=== PATIENT | male | born 1940 | race Caucasian/White ===

== ENCOUNTER 2019-12-16 16:41 | Emergency (ER) | payer OTHER, SELFPAY ==
--- NOTE | ~2019-12-16 | XR_ITS ---
EXAMINATION: XR chest 1V portable EXAM DATE: 12/16/2019 17:26 INDICATION: Weakness, high blood pressure. No urine output. History of asthma. TECHNIQUE: Portable AP frontal chest x-ray was obtained. There is no prior study for comparison. FINDINGS: The lungs are clear. There are no pleural effusions. The cardiomediastinal silhouette is within normal limits. There is no pneumothorax suspected. There is coronary artery stent. There are mild bony degenerative changes. Old left rib fracture. IMPRESSION: No acute cardiopulmonary findings. Reviewed, dictated and finalized at location A.
[2019-12-16 16:53] VITALS: BP 222/94; PULSE 70; RESP 12; TEMP 36.6; O2SAT 99
[2019-12-16 17:50] LABS: Basophils Percent Auto 0.4 % (0.2-1.2); Eosinophils Absolute Auto 0.2 K/mm3 (0-0.3); Eosinophils Percent Auto 2.9 % (0-4.4); Hematocrit 32.5 % (42.0-52.0); Hemoglobin 10.7 g/dL (14.0-18.0); Immature Granulocyte Absolute 0.02 K/mm3 (0.00-0.031); Immature Granulocyte Percent A 0.3 % (0-0.5); Lymphocytes Absolute Auto 2.37 K/mm3 (0.9-3.2); Lymphocytes Percent Auto 32.7 % (18.3-44.2); Mean Corpuscular HGB Conc 32.9 g/dl (32-36); Mean Corpuscular Hemoglobin 29.9 pg (26-34); Mean Corpuscular Volume 90.8 fl (80-100); Mean Platelet Volume 11.3 fl (7.4-10.4); Monocytes Absolute Auto 0.7 K/mm3 (0.1-0.6); Monocytes Percent Auto 9.1 % (2.6-8.5); Neutrophils Percent Auto 54.6 % (45.5-73.1); Platelet Count Result 263 k/mm3 (150-375); Red Blood Count 3.58 M/mm3 (4.6-6.20); Red Cell Distribution Width 14.9 % (11.5-14.5); White Blood Count 7.3 K/mm3 (4.5-10.0)
[2019-12-16 17:59] LABS: INR 1.1; Prothrombin Time 13.6 Seconds (11.1-14.7)
[2019-12-16 18:01] LABS: Lactic Acid Reflex 2.1 mmol/L (0.7-2.1)
[2019-12-16 18:04] LABS: Alanine Aminotransferase 31 U/L (4-50); Albumin Level 3.5 g/dL (3.5-5.1); Alkaline Phosphatase 76 U/L (38-126); Anion Gap 7 mmol/L (8-16); Aspartate Amino Transferase 36 U/L (17-59); Bilirubin,Total 0.5 mg/dL (0.2-1.3); Blood Urea Nitrogen 20 mg/dL (9-20); CRP 0.7 mg/dL (<1.0); Calcium 9.1 mg/dL (8.4-10.2); Carbon Dioxide 29 mmol/L (22-30); Chloride 103 mmol/L (98-107); Estimated Glomerular Filt Rate > 60; Glucose 102 mg/dL (75-110); Potassium 3.5 mmol/L (3.4-5.0); Sodium 139 mmol/L (137-145)
[2019-12-16] MEDS: LIDOCAINE HCL 2% GEL UROJET 10 ML PKG (18:33)
[2019-12-16 18:34] VITALS: BP 220/94; PULSE 74; RESP 11; TEMP 36.6; O2SAT 96
[2019-12-16 18:52] LABS: Add Urine Microscopic? YES; Amorphous Sediment Urine Few; Appearance Urine Clear (Clear); Bilirubin Urine Negative (Negative); Blood Urine Negative (Negative); Color Urine Yellow (Yellow); Glucose Urine UA Negative (Negative); Ketones Urine Negative (Negative); Leukocyte Esterase Ur Negative LEU/UL (Negative); Mucus Urine Rare /lpf; Nitrate Urine Negative (Negative); Protein Urine Negative (Negative); Specific Grav Ur 1.021 (1.001-1.035); WBC Urine 0-3 /hpf
--- NOTE | 2019-12-16 19:12 | ED.ABDPAIN ---
HPI - Abdominal Pain General Chief Complaint: Urogenital-Male <PONCHO Bender Last Filed: 12/16/19 20:18> Stated Complaint: no urinary output <PONCHO Bender Last Filed: 12/16/19 20:18> Time Seen by Provider: 12/16/19 16:53 <PONCHO Bender Last Filed: 12/16/19 20:18> Source: patient <PONCHO Bender Last Filed: 12/16/19 20:18> Mode of arrival: EMS <PONCHO Bender Last Filed: 12/16/19 20:18> Limitations: no limitations and dementia <PONCHO Bender Last Filed: 12/16/19 20:18> History of Present Illness HPI narrative: Patient is a 79-year-old male who presents to emergency department for evaluation of weakness and complaints of inability to urinate patient has history of dementia and is unreliable patient's is present and is unable to offer much as to his acute condition as she has not seen him since the COVID pandemic began. Patient on arrival is an unreliable historian in the bed in no distress <PONCHO Bender Last Filed: 12/16/19 20:18> Related Data Home Medications: Home Medications Medication Instructions Recorded Confirmed brimonidine 0.2 % eye drops 1 drop EACH EYE Q8H 02/04/19 dorzolamide 2 % eye drops 1 drop EACH EYE TID 02/04/19 latanoprost 0.005 % eye drops 1 drop EACH EYE DAILY 02/04/19 memantine ER 28 mg-donepezil 10 mg 1 cap PO QPM 02/04/19 capsule sprinkle,ext.release 24 hr quetiapine 150 mg tablet,extended PO 02/04/19 release 24 hr sertraline 50 mg tablet 50 mg PO DAILY 02/04/19 <PONCHO Bender Last Filed: 12/16/19 20:18> Allergies/Adverse Reactions: Allergies Allergy/AdvReac Type Severity Reaction Status Date / Time codeine Allergy Unknown Verified 03/05/15 14:02 erythromycin base Allergy Unknown Verified 03/05/15 14:02 hydrocodone Allergy Unknown Diarrhea Verified 04/15/17 11:29 spironolactone Allergy Unknown Verified 03/02/13 15:01 <Ghulam Chapman PA-C - Last Filed: 12/16/19 20:18> Review of Systems Review of Systems: ROS unobtainable: Yes unobtainable due to medical condition <Ghulam Chapman PA-C - Last Filed: 12/16/19 20:18> PMFSH Past Medical History Medical History: Medical History Atherosclerotic heart disease of [place] coronary artery without angina pectoris Chronic low back pain Coronary artery graft present Dysphagia, unspecified Hyperlipidemia, unspecified Hypertensive heart disease without heart failure Primary open-angle glaucoma, bilateral, severe stage Type 2 diabetes mellitus with diabetic neuropathy, unspecified Unspecified sequelae of cerebral infarction Unspecified urinary incontinence Vascular dementia with behavioral disturbance <Ghulam Cahpman PA-C - Last Filed: 12/16/19 20:18> Family History Family History: Family History (Updated 04/17/17 @ 14:22 by DOCTOR UNKNOWN) Mother Family history of osteoarthritis Cerebrovascular accident Family history of heart disease in male family member before age 55 Patient's mother is Hypertension Family history of Alzheimer's disease Father Carcinoma of colon Patient's father is Family history of malignant neoplasm Sibling Patient's brother is in good health Other Diabetes mellitus Family history of allergic disorder Family history of cardiovascular disease <Ghulam Chapman PA-C - Last Filed: 12/16/19 20:18> Social History Social History: Social History Smoking status: Never smoker Alcohol intake: never <Ghulam Chapman PA-C - Last Filed: 12/16/19 20:18> Exam Narrative: Exam Narrative: GENERAL: Well-appearing, well-nourished, and in no acute distress. HEAD: Normocephalic, atraumatic. EYES: PERRLA and EOMI. ENT: Nares clear, no rhinorrhea or epistaxis. Mucous membranes moist. Oropharynx witho
[2019-12-16 20:02] VITALS: BP 135/102; PULSE 78; RESP 18; TEMP 36.6; O2SAT 97
[2019-12-16 20:46] VITALS: BP 179/72; PULSE 70; RESP 18; TEMP 36.6; O2SAT 99
[2019-12-16 20:48] LABS: Reflex Lactic Acid Yes or No Add Lactic
--- NOTE | 2019-12-16 21:22 | PC.NURSE ---
called [facility] to transport patient. ETA [phone]
[2019-12-16 21:30] VITALS: BP 181/75; PULSE 76; RESP 17; TEMP 36.7; O2SAT 98
== END 2019-12-16 22:00 ==
PROVIDERS: Emergency Medicine Emergency Medical Services; Emergency Provider Emergency Medicine; PCP Family Medicine
DX: R30.0 Dysuria (principal); I25.10 Atherosclerotic heart disease of native coronary artery without angina pectoris; E78.5 Hyperlipidemia, unspecified; E11.42 Type 2 diabetes mellitus with diabetic polyneuropathy; H40.1133 Primary open-angle glaucoma, bilateral, severe stage; I11.9 Hypertensive heart disease without heart failure; F01.51 Vascular dementia, unspecified severity, with behavioral disturbance
CPT/HCPCS: 36415; 51702; 71045; 80053; 81001; 83605; 85025; 85610; 85730; 86140; 87040; 99283

== ENCOUNTER 2020-03-16 21:31 | Observation (INO) | payer OTHER, SELFPAY ==
[2020-03-16] VITALS (12 sets, daily range): BP systolic 135–174; BP diastolic 67–74; PULSE 71–78; RESP 13–20; TEMP 36.7; O2SAT 98–100
--- NOTE | ~2020-03-16 | XR_ITS ---
EXAMINATION: XR chest 1V portable INDICATION: Transient alteration of awareness TECHNIQUE: Portable AP chest at 2312 hours COMPARISON: 12/16/2019 FINDINGS: The lungs are free of acute opacities. The heart size is normal. Coronary artery stents are noted. There is no pleural effusion or pneumothorax. There is mild osteoarthritis of the shoulders. IMPRESSION: 1. No acute cardiopulmonary abnormality. Reviewed, dictated and finalized at location A. GER PIPELINE
--- NOTE | ~2020-03-16 | CT_ITS ---
EXAMINATION: CT brain wo con INDICATION: Transient alteration of awareness COMPARISON: MRI, 04/24/2016 TECHNIQUE: Standard unenhanced head CT. The dose-length product (DLP) was 605.33 mGy-cm. The mA was a djusted according to patient size. Iterative reconstruction technique was employed. FINDINGS: There is no acute intraparenchymal hemorrhage. No evidence of mass lesion. No evidence of a cute infarction. There is an old lacunar infarct of the left basal ganglia. There is moderate periven tricular and subcortical hypodensity probably related to small vessel ischemic disease. There is mode rate prominence of the sulci and ventricles related to cerebral atrophy. Intracranial calcified cereb ral atherosclerosis is noted. There are no extra-axial collections. There is no mass effect or midlin e shift. Changes in the left globe are likely from ocular lens surgery. There is mild mucosal thicke melodie of the paranasal sinuses. IMPRESSION: 1. No acute intracranial abnormality. 2. Age related findings. Reviewed, dictated and finalized at location A. GN DIRECTOR
--- NOTE | 2020-03-16 21:32 | ECG_ITS ---
Measurements Intervals [place] Rate: 73 P: 8 SC: 167 QRS: 34 QRSD: 103 T: 41 QT: 393 QTc: 434 Interpretive Statements SINUS RHYTHM ANTEROSEPTAL INFARCT, AGE INDETERMINATE BASELINE ARTIFACT- III ABNORMAL ECG Electronically Signed On 03-17-2020 7:15:44 SENIOR SOFTWARE DEVELOPMENT MANAGER by Paco Loera D.O.
[2020-03-16 21:45] LABS: Basophils Absolute Auto 0.1 K/mm3 (0.0-0.1); Basophils Percent Auto 0.8 % (0.2-1.2); Eosinophils Absolute Auto 0.3 K/mm3 (0-0.3); Eosinophils Percent Auto 4.2 % (0-4.4); Hematocrit 32.8 % (42.0-52.0); Hemoglobin 10.8 g/dL (14.0-18.0); Immature Granulocyte Absolute 0.01 K/mm3 (0.00-0.031); Immature Granulocyte Percent A 0.2 % (0-0.5); Lymphocytes Absolute Auto 1.75 K/mm3 (0.9-3.2); Lymphocytes Percent Auto 29.5 % (18.3-44.2); Mean Corpuscular HGB Conc 32.9 g/dl (32-36); Mean Corpuscular Hemoglobin 31.6 pg (26-34); Mean Corpuscular Volume 95.9 fl (80-100); Mean Platelet Volume 11.3 fl (7.4-10.4); Monocytes Absolute Auto 0.4 K/mm3 (0.1-0.6); Monocytes Percent Auto 7.4 % (2.6-8.5); Neutrophils Absolute Auto 3.4 K/mm3 (1.3-6.7); Neutrophils Percent Auto 57.9 % (45.5-73.1); Platelet Count Result 208 k/mm3 (150-375); Red Blood Count 3.42 M/mm3 (4.6-6.20); Red Cell Distribution Width 13.7 % (11.5-14.5); White Blood Count 5.9 K/mm3 (4.5-10.0)
[2020-03-16 21:57] LABS: Anion Gap 3 mmol/L (8-16); Blood Urea Nitrogen 15 mg/dL (9-20); Calcium 8.2 mg/dL (8.4-10.2); Carbon Dioxide 31 mmol/L (22-30); Chloride 103 mmol/L (98-107); Estimated CRCL calculation 64 ml/min; Estimated Glomerular Filt Rate > 60; Glucose 182 mg/dL (75-110); Potassium 3.5 mmol/L (3.4-5.0); Sodium 137 mmol/L (137-145)
--- NOTE | 2020-03-16 22:02 | ED.SYNCOPE ---
HPI - Syncope General Chief Complaint: Syncope Stated Complaint: syncope Time Seen by Provider: 03/16/20 21:40 Source: EMS Mode of arrival: EMS Limitations: dementia History of Present Illness HPI narrative: 79 years old white male, [facility] brought to the emergency room by ambulance because of unresponsiveness lasted for about 10 minutes. Patient had vomited once today for unknown reason, later was sitting on the dinner table and became unresponsive. The nurse tried to stimulate him without any response. Patient become responsive when the ambulance arrived to the [facility]. Currently patient is awake, oriented to his name only, denying any symptoms, looks comfortable. The [facility] denied that the patient have any fever, chills, coughing, shortness of breath, chest pain, exposure to anybody known having COVID-19. Related Data Home Medications Medication Instructions Recorded Confirmed brimonidine 0.2 % eye drops 1 drop EACH EYE Q8H 02/04/19 dorzolamide 2 % eye drops 1 drop EACH EYE TID 02/04/19 latanoprost 0.005 % eye drops 1 drop EACH EYE DAILY 02/04/19 memantine ER 28 mg-donepezil 10 mg 1 cap PO QPM 02/04/19 capsule sprinkle,ext.release 24 hr quetiapine 150 mg tablet,extended PO 02/04/19 release 24 hr sertraline 50 mg tablet 50 mg PO DAILY 02/04/19 Allergies Allergy/AdvReac Type Severity Reaction Status Date / Time codeine Allergy Unknown Unknown Verified 03/16/20 21:33 erythromycin base Allergy Unknown Unknown Verified 03/16/20 21:33 hydrocodone Allergy Unknown Diarrhea Verified 03/16/20 21:33 spironolactone Allergy Unknown Unknown Verified 03/16/20 21:33 Review of Systems Review of Systems: ROS unobtainable: Yes unobtainable due to mental status PMFSH Past Medical History Medical History (Updated 03/16/20 @ 23:10 by Jennifer Hutton MD) Atherosclerotic heart disease of [place] coronary artery without angina pectoris Chronic low back pain Coronary artery graft present Dysphagia, unspecified Hyperlipidemia, unspecified Hypertensive heart disease without heart failure Primary open-angle glaucoma, bilateral, severe stage Type 2 diabetes mellitus with diabetic neuropathy, unspecified Unspecified sequelae of cerebral infarction Unspecified urinary incontinence Vascular dementia with behavioral disturbance Family History Family History Mother Family history of osteoarthritis Cerebrovascular accident Family history of heart disease in male family member before age 55 Patient's mother is Hypertension Family history of Alzheimer's disease Father Carcinoma of colon Patient's father is Family history of malignant neoplasm Sibling Patient's brother is in good health Other Diabetes mellitus Family history of allergic disorder Family history of cardiovascular disease Social History Social History Smoking status: Never smoker Alcohol intake: never Exam Narrative: Exam Narrative: General appearance: Well-developed, well-nourished, laying down in bed, not in any pain or distress Skin: Pale Head: Normocephalic, nontraumatic Eyes: Clear conjunctiva ENT: Oropharynx normal, ears normal, nose normal Neck: Supple, nontender Chest and respiratory: Airway patent, no respiratory distress, no accessory muscle use Heart: Regular rate/rhythm Abdomen: Soft, nontender, no organomegaly, quiet bowel sounds Musculoskeletal: Normal range of motion, nontender back Neurologic: Alert and oriented to his name only Course Vital Signs Vital signs: Vital Signs Temperature 36.7 C 03/16/20 21:24
[2020-03-16 23:47] LABS: Base Excess ABG -1.7 mEq/l (+/-2.0); Device ROOM AIR; Fractional Inspired Oxygen 21 %; HCO3 ABG 22.8 mEq/l (22.0-26.0); Oxygen Content ABG 14.9 %vol (16.0-22.0); Oxygen Saturation ABG 97.4 % (95.0-100.0); Oxyhemoglobin 95.3 % THb (90.0-100.0); PCO2 ABG 37.7 mmHg (35.0-45.0); PO2 ABG 96.6 mmHg (80.0-100.0); Site Drawn RIGHT BRACHIAL
[2020-03-17] VITALS (14 sets, daily range): BP systolic 103–208; BP diastolic 57–92; PULSE 65–75; RESP 12–18; TEMP 36–36.6; O2SAT 92–100
--- NOTE | 2020-03-17 01:00 | ADMGEN ---
This patient, Timothy Noble, was admitted to Medical Room 254-01 on 03/17/2020 @ 0045. Patient/family oriented to hospital policies and general routines including ID bracelet, bed and alarms, visiting hours, pain management, procedures, bathroom and other care routines, personal items, smoking policy, room service/diet, and visiting hours. Information on how to activate the Rapid Response Team has been discussed. Patient/Family are encouraged to report perceived risks to care and to ask questions if they do not understand what they are told or what they should do.
--- NOTE | 2020-03-17 02:20 | PC.NURSE ---
pt poor historian, unable to answer most of my questions. History obtained from records from [facility] and from previous history. Unable to verify pts home medications, there is no nurse available overnight at [facility].
--- NOTE | 2020-03-17 05:50 | PC.NURSE ---
spoke with pt's Maria Elena, she is able to tell me that pt had a stroke 3 years ago. Since then he has gone down hill fairly quickly. She said he has a lot of difficulty with speech and has had multiple falls recently. He currently uses a wheelchair and had been working with therapy to try walking with a walker and gait belt. She also states he had been working with speech therapy. She is unable to tell me if he has any difficulty swallowing, and was unable to tell me about his medications
--- NOTE | 2020-03-17 07:37 | PM.IMHP ---
H&P: HPI History of Present Illness Date/Time: 03/17/20 07:37 Chief complaint: Unresponsiveness Narrative: Timothy Noble is a 79 year old male resident at [facility]. He was at the dinner table when he slumped over and was unresponsive for several minutes, perhaps 10 total. When EMS arrived he was again responding normally for him. His normally oriented to person only. He has advanced dementia with recent poor oral intake and severe behaviors with aggressiveness toward caregivers. Earlier in the day he had an episode of emesis. No unreported any bleeding with the emesis. No recent blood noted in his stool. Since arrival at the hospital he has had no further episodes of unresponsiveness. Since December he has been unable to walk. He is chronically incontinent of bowel and bladder. He has been having trouble feeding himself since December. His speech has become more sparse. He requires assistance with all ADLs and set up for feeding. History was obtained by review of the chart and by phone conversation with his Maria Elena. Review of Systems Review of Systems: Narrative: Patient is cooperative but with poor memory. He denied any current pain or dyspnea. ROS unobtainable: Yes unobtainable due to mental status PMFSH Past Medical History Medical History (Updated 03/17/20 @ 13:35 by Javed Jordan MD) Anemia of chronic disease Atherosclerotic heart disease of [place] coronary artery without angina pectoris Cerebrovascular disease Chronic low back pain Dysphagia, unspecified H/O: stroke Hyperlipidemia, unspecified Hypertensive heart disease without heart failure Primary open-angle glaucoma, bilateral, severe stage Type 2 diabetes mellitus with diabetic neuropathy, unspecified Unspecified sequelae of cerebral infarction Unspecified urinary incontinence Vascular dementia with behavioral disturbance Surgical History Surgical History (Updated 03/17/20 @ 13:29 by Javed Jordan MD) S/P coronary angiogram 2006 with 3 stents Stented coronary artery Family History Family History Mother Family history of osteoarthritis Cerebrovascular accident Family history of heart disease in male family member before age 55 Patient's mother is Hypertension Family history of Alzheimer's disease Father Carcinoma of colon Patient's father is Family history of malignant neoplasm Sibling Patient's brother is in good health Other Diabetes mellitus Family history of allergic disorder Family history of cardiovascular disease Social History Social History (Updated 03/17/20 @ 13:30 by Javed Jordan MD) Smoking status: Never smoker Alcohol intake: unknown Substance use: current Substance use type: sedatives Living arrangements: [facility] Occupation/Education: retired Meds Home Medications and Allergies Home Medications Medication Instructions Recorded Confirmed Type brimonidine 0.2 % eye drops 1 drop EACH EYE TID 02/04/19 03/17/20 History dorzolamide 2 % eye drops 1 drop EACH EYE TID 02/04/19 03/17/20 History latanoprost 0.005 % eye drops 1 drop EACH EYE HS 02/04/19 03/17/20 History quetiapine 150 mg tablet,extended 200 mg PO DAILY 02/04/19 03/17/20 History release 24 hr sertraline 50 mg tablet 50 mg PO DAILY 02/04/19 03/17/20 History aspirin 81 mg tablet,delayed 81 mg PO DAILY #90 tablet 06/22/19 03/17/20 Rx release clopidogrel 75 mg tablet 75 mg PO DAILY #30 tablet 10/12/19 03/17/20 Rx metformin 500 mg tablet 500 mg PO BID #60 tablet 10/12/19 03/17/20 Rx omega-3 acid ethyl esters 1 gram 2 cap PO BID #120 cap 12/14/19 03/17/20 Rx capsule atorvastatin 80 mg PO DAILY 03/17/20 03/17/20 History carvedilol 3.125 mg PO BID 03/17/20 03/17/20 History cyanocobalamin (vitamin B-12) 1,000 mcg PO DAILY 03/17/20 03/17/20 History [Vitamin B-12] divalproex 125 mg PO BID 03/17/20 03/17/20 History donepezil 10
[2020-03-17 08:36] LABS: Hematocrit 29.7 % (42.0-52.0); Hemoglobin 9.8 g/dL (14.0-18.0); Immature Reticulocyte Fraction 10.1 % (3.0-15.9); Mean Corpuscular Hemoglobin 31.5 pg (26-34); Mean Corpuscular Volume 95.5 fl (80-100); Mean Platelet Volume 11.4 fl (7.4-10.4); Platelet Count Result 194 k/mm3 (150-375); Red Blood Count 3.11 M/mm3 (4.6-6.20); Red Cell Distribution Width 13.9 % (11.5-14.5); Reticulocyte Hemoglobin Conten 35.6 pg (28.2-35.7); Reticulocyte Percent 1.48 % (0.7-4.3); Reticulocytes Absolute 0.05 B/L (32.2-175.7); White Blood Count 5.8 K/mm3 (4.5-10.0)
[2020-03-17 08:51] LABS: Alanine Aminotransferase 13 U/L (4-50); Albumin Level 2.9 g/dL (3.5-5.1); Alkaline Phosphatase 69 U/L (38-126); Anion Gap 0 mmol/L (8-16); Aspartate Amino Transferase 19 U/L (17-59); Bilirubin,Total 0.3 mg/dL (0.2-1.3); Blood Urea Nitrogen 17 mg/dL (9-20); CRP < 0.5 mg/dL (<1.0); Carbon Dioxide 36 mmol/L (22-30); Chloride 105 mmol/L (98-107); Estimated CRCL calculation 65 ml/min; Estimated Glomerular Filt Rate > 60; Glucose 104 mg/dL (75-110); Potassium 3.4 mmol/L (3.4-5.0); Sodium 141 mmol/L (137-145)
[2020-03-17 09:43] LABS: Iron 32 ug/dL (49-181)
[2020-03-17 09:53] LABS: Percent Iron Saturation 13 % (20-50)
[2020-03-17 10:15] LABS: Thyroid Stimulating Hormone Reflex 0.588 uIU/mL (0.465-4.68)
[2020-03-17 10:35] LABS: Folic Acid > 20.0 ng/mL (2.76->20)
--- NOTE | 2020-03-17 11:00 | PC.NURSE ---
Dr. Jordan notified that patients home medications have been entered into home med rec to be continued.
[2020-03-17] MEDS: LOSARTAN POTASSIUM 100 MG TABLET PO (14:03)
[2020-03-17 15:46] LABS: IFOB Positive Control Positive; Immunochemical Fecal Occult Bl Negative (N)
[2020-03-17] MEDS: DORZOLAMIDE HCL 2% OPHTH DROPS 1 DROP EACH EYE (17:06)
[2020-03-17] MEDS: ENOXAPARIN 40 MG/0.4 ML SYRINGE SUB-Q (17:06)
[2020-03-17] MEDS: BRIMONIDINE TARTRATE 0.2% OP SOLN 5 ML BTL 1 DROP EACH EYE (17:06)
[2020-03-17] MEDS: DIVALPROEX SODIUM SPRINKLE 125 MG CAP.DR PO (17:06)
[2020-03-17] MEDS: MEMANTINE 10 MG TABLET PO (17:06)
[2020-03-17] MEDS: metFORMIN HCL 500 MG TABLET PO (17:06)
[2020-03-17 18:18] LABS: Glucose Point of Care 95 (65-105)
[2020-03-17] MEDS: carvediloL 3.125 MG TABLET PO (21:11)
[2020-03-17] MEDS: LATANOPROST 0.005% OP SOLN 2.5 ML BTL 1 DROP EACH EYE (21:11)
[2020-03-17] MEDS: DONEPEZIL HCL 10 MG TABLET PO (21:12)
[2020-03-17] MEDS: OMEGA 3 POLYUNSAT FATTY ACIDS 1 GM CAP PO (21:12)
[2020-03-17 22:39] LABS: Glucose Point of Care 101 (65-105)
[2020-03-18] VITALS (12 sets, daily range): BP systolic 123–197; BP diastolic 72–90; PULSE 59–87; RESP 14–18; TEMP 36.2–36.5; O2SAT 97–99
[2020-03-18] MEDS: hydrALAZINE HCL 20 MG/ML VIAL 10 MG IV PUSH (03:10)
[2020-03-18] MEDS: ATORVASTATIN 40 MG TABLET 80 MG PO (08:23)
[2020-03-18] MEDS: SERTRALINE HCL 50 MG TABLET PO (08:23)
[2020-03-18] MEDS: MEMANTINE 10 MG TABLET PO ×2 (08:23→17:15)
[2020-03-18] MEDS: carvediloL 3.125 MG TABLET PO ×2 (08:23→20:40)
[2020-03-18] MEDS: FOLIC ACID 1 MG TABLET PO (08:23)
[2020-03-18] MEDS: OMEGA 3 POLYUNSAT FATTY ACIDS 1 GM CAP PO ×2 (08:23→20:40)
[2020-03-18] MEDS: POTASSIUM CHLORIDE 10 MEQ TABLET.ER PO (08:24)
[2020-03-18] MEDS: BRIMONIDINE TARTRATE 0.2% OP SOLN 5 ML BTL 1 DROP EACH EYE ×3 (08:24→17:14)
[2020-03-18] MEDS: CYANOCOBALAMIN 1,000 MCG TABLET 1000 MCG PO (08:24)
[2020-03-18] MEDS: ASPIRIN 81 MG ENTERIC TABLET PO (08:24)
[2020-03-18] MEDS: DIVALPROEX SODIUM SPRINKLE 125 MG CAP.DR PO ×2 (08:24→17:15)
[2020-03-18] MEDS: QUEtiapine FUMARATE XR 200 MG TAB.ER.24H PO (08:24)
[2020-03-18] MEDS: LOSARTAN POTASSIUM 100 MG TABLET PO (08:24)
--- NOTE | 2020-03-18 08:25 | P.PNIM_ITS ---
Progress Note: A&P Assessment and Plan (1) Syncope: Code(s): R55 - Syncope and collapse Status: Acute Assessment and Plan: * Differential diagnosis includes seizure due to prior stroke, posterior circulation TIA, cardiac dysrhythmia, hypoglycemia, neurocardiogenic * acute coronary syndrome is clinically unlikely in light of EKG * currently seems to be back at baseline * Telemetry unremarkable * Continue cardiac monitoring * D/w spouse and, due to patient's advanced dementia, will not pursue any further evaluation * She will consider hospice care upon his return to the [place] * Await negative SARS-CoV-2 rt-PCR prior to discharge to CT (2) Cerebrovascular disease: Code(s): I67.9 - Cerebrovascular disease, unspecified Status: Acute (3) Vascular dementia with behavioral disturbance: Code(s): F01.51 - Vascular dementia with behavioral disturbance Status: Acute Assessment and Plan: * patient is on quetiapine for behaviors * apparently confusion has been worsening (4) Type 2 diabetes mellitus with diabetic neuropathy, unspecified: Code(s): E11.40 - Type 2 diabetes mellitus with diabetic neuropathy, unspecified Status: Acute Assessment and Plan: * Hold metformin due to adverse effect on appetite and recent poor oral intake * monitor sugars and administer sliding scale insulin as needed * 03/18 FBS only 85 (5) Atherosclerotic heart disease of [place] coronary artery without angina pectoris: Code(s): I25.10 - Atherosclerotic heart disease of [place] coronary artery without angina pectoris Status: Acute Assessment and Plan: * continue beta-alexander and antiplatelet therapy (6) Stented coronary artery: Code(s): Z95.5 - Presence of coronary angioplasty implant and graft Status: Acute Assessment and Plan: * continue anti-platelet therapy (7) Hypertensive heart disease without heart failure: Code(s): I11.9 - Hypertensive heart disease without heart failure Status: Acute Assessment and Plan: * resume home antihypertensive regimen (8) Anemia of chronic disease: Code(s): D63.8 - Anemia in other chronic diseases classified elsewhere Status: Acute Assessment and Plan: * no sign of iron deficiency or B12 deficiency or hemolysis (9) Malnutrition of moderate degree: Code(s): E44.0 - Moderate protein-calorie malnutrition Status: Acute Assessment and Plan: * likely due to the and sing dementia with poor oral intake * Albumin 2.9 Subjective Date/time seen: 03/18/20 08:25 Interval history: Admitted 03/16 PM due to LOC while at dinner table at [place]. 03/18: No recurrence since admission. Tolerating diet. Review of Systems Review of Systems: ROS unobtainable: Yes unobtainable due to mental status Exam Narrative: Exam Narrative: HEENT: EOMI, PERRL, sclerae nonicteric, pharyngeal mucosa pink and intact NECK: No JVD CHEST: Clear to auscultation. Normal effort. HEART: NL S1/S2, regular, no murmur ABDOMEN: BS+, soft, nontender, no mass, no bruits EXTREMITIES: No cyanosis. no ankle edema NEUROLOGIC: CN intact and symmetric to inspection. MUSCULOSKELETAL: Tone and strength symmetric. PSYCH: Alert. Oriented to person only. Objective Data Vital Signs Vital Signs: Vital Signs - 24 hr 03/17/20 10:40 03/17/20 12:00 03/17/20 16:00 Temperature 97.4 F L 97.9 F Pulse Rate 75 68 75 R
--- NOTE | 2020-03-18 08:25 | PM.IMPN ---
Progress Note: A&P Assessment and Plan (1) Syncope: Code(s): R55 - Syncope and collapse Status: Acute Assessment and Plan: Differential diagnosis includes seizure due to prior stroke, posterior circulation TIA, cardiac dysrhythmia, hypoglycemia, neurocardiogenic acute coronary syndrome is clinically unlikely in light of EKG currently seems to be back at baseline Telemetry unremarkable Continue cardiac monitoring D/w spouse and, due to patient's advanced dementia, will not pursue any further evaluation She will consider hospice care upon his return to the [place] Await negative SARS-CoV-2 rt-PCR prior to discharge to [facility] (2) Cerebrovascular disease: Code(s): I67.9 - Cerebrovascular disease, unspecified Status: Acute (3) Vascular dementia with behavioral disturbance: Code(s): F01.51 - Vascular dementia with behavioral disturbance Status: Acute Assessment and Plan: patient is on quetiapine for behaviors apparently confusion has been worsening (4) Type 2 diabetes mellitus with diabetic neuropathy, unspecified: Code(s): E11.40 - Type 2 diabetes mellitus with diabetic neuropathy, unspecified Status: Acute Assessment and Plan: Hold metformin due to adverse effect on appetite and recent poor oral intake monitor sugars and administer sliding scale insulin as needed 03/18 FBS only 85 (5) Atherosclerotic heart disease of [place] coronary artery without angina pectoris: Code(s): I25.10 - Atherosclerotic heart disease of [place] coronary artery without angina pectoris Status: Acute Assessment and Plan: continue beta-alexander and antiplatelet therapy (6) Stented coronary artery: Code(s): Z95.5 - Presence of coronary angioplasty implant and graft Status: Acute Assessment and Plan: continue anti-platelet therapy (7) Hypertensive heart disease without heart failure: Code(s): I11.9 - Hypertensive heart disease without heart failure Status: Acute Assessment and Plan: resume home antihypertensive regimen (8) Anemia of chronic disease: Code(s): D63.8 - Anemia in other chronic diseases classified elsewhere Status: Acute Assessment and Plan: no sign of iron deficiency or B12 deficiency or hemolysis (9) Malnutrition of moderate degree: Code(s): E44.0 - Moderate protein-calorie malnutrition Status: Acute Assessment and Plan: likely due to the and sing dementia with poor oral intake Albumin 2.9 Subjective Date/time seen: 03/18/20 08:25 Interval history: Admitted 03/16 PM due to LOC while at dinner table at [place]. 03/18: No recurrence since admission. Tolerating diet. Review of Systems Review of Systems: ROS unobtainable: Yes unobtainable due to mental status Exam Narrative: Exam Narrative: HEENT: EOMI, PERRL, sclerae nonicteric, pharyngeal mucosa pink and intact NECK: No JVD CHEST: Clear to auscultation. Normal effort. HEART: NL S1/S2, regular, no murmur ABDOMEN: BS+, soft, nontender, no mass, no bruits EXTREMITIES: No cyanosis. no ankle edema NEUROLOGIC: CN intact and symmetric to inspection. MUSCULOSKELETAL: Tone and strength symmetric. PSYCH: Alert. Oriented to person only. Objective Data Vital Signs Vital Signs: Vital Signs - 24 hr 03/17/20 10:40 03/17/20 12:00 03/17/20 16:00 Temperature 97.4 F L 97.9 F Pulse Rate 75 68 75 Respiratory Rate 16 18 Blood Pressure 208/82 H 186/92 H Pulse Oximetry 100 92 03/17/20 20:00 03/17/20 21:11 03/17/20 21:44 Temperature 97.5 F L Pulse Rate 66 68 66 Respiratory Rate 18 Blood Pressure 183/74 H Pulse Oximetry 98 03/18/20 00:00 03/18/20 02:36 03/18/20 02:38 Temperature 97.3 F L Pulse Rate 65 59 L Respiratory Rate 18 Blood Pressure 195/77 H 192/77 H Pulse Oximetry 99 03/18/20 04:00 03/18/20 08:23 Temperature Pulse Rate 64 86 Respiratory Rate Blood P
[2020-03-18] MEDS: DORZOLAMIDE HCL 2% OPHTH DROPS 1 DROP EACH EYE ×3 (08:34→17:14)
[2020-03-18 08:41] LABS: Glucose Point of Care 85 (65-105)
[2020-03-18] MEDS: CLOPIDOGREL BISULFATE 75 MG TABLET PO (09:16)
[2020-03-18 11:52] LABS: Glucose Point of Care 113 (65-105)
[2020-03-18 16:36] LABS: Glucose Point of Care 111 (65-105)
[2020-03-18] MEDS: ENOXAPARIN 40 MG/0.4 ML SYRINGE SUB-Q (17:15)
[2020-03-18] MEDS: DONEPEZIL HCL 10 MG TABLET PO (20:40)
[2020-03-18] MEDS: LATANOPROST 0.005% OP SOLN 2.5 ML BTL 1 DROP EACH EYE (20:41)
[2020-03-18 20:50] LABS: Glucose Point of Care 156 (65-105)
[2020-03-19] VITALS (8 sets, daily range): BP systolic 147–158; BP diastolic 53–68; PULSE 61–72; RESP 16; TEMP 36.1–36.6; O2SAT 98–100; BMI 21.9
[2020-03-19 07:44] LABS: Glucose Point of Care 102 (65-105)
[2020-03-19] MEDS: carvediloL 3.125 MG TABLET PO (09:48)
[2020-03-19] MEDS: ATORVASTATIN 40 MG TABLET 80 MG PO (09:48)
[2020-03-19] MEDS: LOSARTAN POTASSIUM 100 MG TABLET PO (09:49)
[2020-03-19] MEDS: BRIMONIDINE TARTRATE 0.2% OP SOLN 5 ML BTL 1 DROP EACH EYE ×3 (09:49→19:41)
[2020-03-19] MEDS: DIVALPROEX SODIUM SPRINKLE 125 MG CAP.DR PO ×2 (09:49→19:39)
[2020-03-19] MEDS: CYANOCOBALAMIN 1,000 MCG TABLET 1000 MCG PO (09:49)
[2020-03-19] MEDS: POTASSIUM CHLORIDE 10 MEQ TABLET.ER PO (09:49)
[2020-03-19] MEDS: OMEGA 3 POLYUNSAT FATTY ACIDS 1 GM CAP PO (09:49)
[2020-03-19] MEDS: ASPIRIN 81 MG ENTERIC TABLET PO (09:49)
[2020-03-19] MEDS: FOLIC ACID 1 MG TABLET PO (09:50)
[2020-03-19] MEDS: QUEtiapine FUMARATE XR 200 MG TAB.ER.24H PO (09:50)
[2020-03-19] MEDS: SERTRALINE HCL 50 MG TABLET PO (09:50)
[2020-03-19] MEDS: CLOPIDOGREL BISULFATE 75 MG TABLET PO (09:50)
[2020-03-19] MEDS: MEMANTINE 10 MG TABLET PO ×2 (09:50→19:39)
[2020-03-19] MEDS: DORZOLAMIDE HCL 2% OPHTH DROPS 1 DROP EACH EYE ×3 (09:51→19:41)
[2020-03-19 12:06] LABS: Glucose Point of Care 197 (65-105)
--- NOTE | 2020-03-19 15:29 | P.DS_ITS ---
DS: Admitting Diagnosis Admitting Diagnosis Admitting Diagnosis: Unresponsiveness DS: Discharge Diagnosis Discharge Diagnosis (1) Syncope: Code(s): R55 - Syncope and collapse Status: Acute Assessment and Plan: * Differential diagnosis includes seizure due to prior stroke, posterior circulation TIA, cardiac dysrhythmia, hypoglycemia, neurocardiogenic * acute coronary syndrome is clinically unlikely in light of EKG * currently seems to be back at baseline * Telemetry unremarkable * Continue cardiac monitoring * D/w spouse and, due to patient's advanced dementia, will not pursue any further evaluation * She will consider hospice care upon his return to the [place] * Await negative SARS-CoV-2 rt-PCR prior to discharge to [place] (2) Cerebrovascular disease: Code(s): I67.9 - Cerebrovascular disease, unspecified Status: Acute (3) Vascular dementia with behavioral disturbance: Code(s): F01.51 - Vascular dementia with behavioral disturbance Status: Acute Assessment and Plan: * patient is on quetiapine for behaviors * apparently confusion has been worsening (4) Type 2 diabetes mellitus with diabetic neuropathy, unspecified: Code(s): E11.40 - Type 2 diabetes mellitus with diabetic neuropathy, unspecified Status: Acute Assessment and Plan: * Hold metformin due to adverse effect on appetite and recent poor oral intake * monitor sugars and administer sliding scale insulin as needed * 03/18 FBS only 85 (5) Atherosclerotic heart disease of [place] coronary artery without angina pectoris: Code(s): I25.10 - Atherosclerotic heart disease of [place] coronary artery without angina pectoris Status: Acute Assessment and Plan: * continue beta-alexander and antiplatelet therapy (6) Stented coronary artery: Code(s): Z95.5 - Presence of coronary angioplasty implant and graft Status: Acute Assessment and Plan: * continue anti-platelet therapy (7) Hypertensive heart disease without heart failure: Code(s): I11.9 - Hypertensive heart disease without heart failure Status: Acute Assessment and Plan: * resume home antihypertensive regimen (8) Anemia of chronic disease: Code(s): D63.8 - Anemia in other chronic diseases classified elsewhere Status: Acute Assessment and Plan: * no sign of iron deficiency or B12 deficiency or hemolysis (9) Malnutrition of moderate degree: Code(s): E44.0 - Moderate protein-calorie malnutrition Status: Acute Assessment and Plan: * likely due to the and sing dementia with poor oral intake * Albumin 2.9 DS: Summary Hospital Course Reason for hospitalization: Chief complaint: Unresponsiveness Narrative: Timothy Noble is a 79 year old male resident at long term. He was at the dinner table when he slumped over and was unresponsive for several minutes, perhaps 10 total. When EMS arrived he was again responding normally for him. His normally oriented to person only. He has advanced dementia with recent poor oral intake and severe behaviors with aggressiveness toward caregivers. Earlier in the day he had an episode of emesis. No unreported any bleeding with the emesis. No recent blood noted in his stool. Since arrival at the hospital he has had no further episodes of unresponsiveness. Since December he has been unable to walk. He is chronically incontinent of bowel and bladder. He has been having trouble feeding himself since December. His speech has become more sparse. He requires assistance
--- NOTE | 2020-03-19 15:29 | PM.DS ---
DS: Admitting Diagnosis Admitting Diagnosis Admitting Diagnosis: Unresponsiveness DS: Discharge Diagnosis Discharge Diagnosis (1) Syncope: Code(s): R55 - Syncope and collapse Status: Acute Assessment and Plan: Differential diagnosis includes seizure due to prior stroke, posterior circulation TIA, cardiac dysrhythmia, hypoglycemia, neurocardiogenic acute coronary syndrome is clinically unlikely in light of EKG currently seems to be back at baseline Telemetry unremarkable Continue cardiac monitoring D/w spouse and, due to patient's advanced dementia, will not pursue any further evaluation She will consider hospice care upon his return to the [place] Await negative SARS-CoV-2 rt-PCR prior to discharge to [place] (2) Cerebrovascular disease: Code(s): I67.9 - Cerebrovascular disease, unspecified Status: Acute (3) Vascular dementia with behavioral disturbance: Code(s): F01.51 - Vascular dementia with behavioral disturbance Status: Acute Assessment and Plan: patient is on quetiapine for behaviors apparently confusion has been worsening (4) Type 2 diabetes mellitus with diabetic neuropathy, unspecified: Code(s): E11.40 - Type 2 diabetes mellitus with diabetic neuropathy, unspecified Status: Acute Assessment and Plan: Hold metformin due to adverse effect on appetite and recent poor oral intake monitor sugars and administer sliding scale insulin as needed 03/18 FBS only 85 (5) Atherosclerotic heart disease of [place] coronary artery without angina pectoris: Code(s): I25.10 - Atherosclerotic heart disease of [place] coronary artery without angina pectoris Status: Acute Assessment and Plan: continue beta-alexander and antiplatelet therapy (6) Stented coronary artery: Code(s): Z95.5 - Presence of coronary angioplasty implant and graft Status: Acute Assessment and Plan: continue anti-platelet therapy (7) Hypertensive heart disease without heart failure: Code(s): I11.9 - Hypertensive heart disease without heart failure Status: Acute Assessment and Plan: resume home antihypertensive regimen (8) Anemia of chronic disease: Code(s): D63.8 - Anemia in other chronic diseases classified elsewhere Status: Acute Assessment and Plan: no sign of iron deficiency or B12 deficiency or hemolysis (9) Malnutrition of moderate degree: Code(s): E44.0 - Moderate protein-calorie malnutrition Status: Acute Assessment and Plan: likely due to the and sing dementia with poor oral intake Albumin 2.9 DS: Summary Hospital Course Reason for hospitalization: Chief complaint: Unresponsiveness Narrative: Timothy Noble is a 79 year old male resident at [facility]. He was at the dinner table when he slumped over and was unresponsive for several minutes, perhaps 10 total. When EMS arrived he was again responding normally for him. His normally oriented to person only. He has advanced dementia with recent poor oral intake and severe behaviors with aggressiveness toward caregivers. Earlier in the day he had an episode of emesis. No unreported any bleeding with the emesis. No recent blood noted in his stool. Since arrival at the hospital he has had no further episodes of unresponsiveness. Since December he has been unable to walk. He is chronically incontinent of bowel and bladder. He has been having trouble feeding himself since December. His speech has become more sparse. He requires assistance with all ADLs and set up for feeding. History was obtained by review of the chart and by phone conversation with his Maria Elena. Hospital Course: Patient is elderly with severe dementia family has decided not to pursue any medical treatment, patient clinically stable will discharge the patient back to nursing will you be admitted under hospice care Status at Discharge Function
[2020-03-19 18:13] LABS: Glucose Point of Care 162 (65-105)
[2020-03-19 18:35] LABS: SARS-CoV-2 RNA PCR Negative
[2020-03-19] MEDS: ENOXAPARIN 40 MG/0.4 ML SYRINGE SUB-Q (19:40)
--- NOTE | 2020-03-19 19:53 | PCAUD ---
1934 Spoke with , RE: Pt needs a ride to [facility] for discharge from [address] [place] [address]. COVID test negative. [place] aware that he will be coming tonight. states son will come to pick him up in an hour. Next dose of meds at 2100.
== END 2020-03-19 20:41 ==
LOC: ANHED 23:10 → ANH2MED 03-19 01:01
PROVIDERS: Internal Medicine; Admitting Provider Student in an Organized Health Care Education/Training Program; Emergency Provider Emergency Medicine; PCP Family Medicine; Visit Provider Family Medicine
DX: R55 Syncope and collapse (principal); I67.9 Cerebrovascular disease, unspecified; Z20.828 Contact with and (suspected) exposure to other viral communicable diseases; D63.8 Anemia in other chronic diseases classified elsewhere; E11.42 Type 2 diabetes mellitus with diabetic polyneuropathy; E44.0 Moderate protein-calorie malnutrition; F01.51 Vascular dementia, unspecified severity, with behavioral disturbance; I25.10 Atherosclerotic heart disease of native coronary artery without angina pectoris; I11.9 Hypertensive heart disease without heart failure; N39.498 Other specified urinary incontinence; R15.9 Full incontinence of feces; Z95.5 Presence of coronary angioplasty implant and graft; Z79.84 Long term (current) use of oral hypoglycemic drugs; Z86.73 Personal history of transient ischemic attack (TIA), and cerebral infarction without residual deficits
CPT/HCPCS: 36415; 36600; 70450; 71045; 80048; 80053; 82274; 82607; 82746; 82805; 83540; 83550; 84443; 85025; 85027; 85046; 86140; 87635; 93005; 96372; 96374; 99285; A9270; C9803; G0378; J0360; J1650; U0003

== ENCOUNTER 2020-05-26 17:12 | Emergency (ER) | payer OTHER, MEDICARE, SELFPAY ==
--- NOTE | ~2020-05-26 | XR_ITS ---
EXAMINATION: [id number] EXAM DATE: 05/26/2020 18:23 INDICATION: Fell out of bed, subsequent right rib pain. TECHNIQUE: Frontal projection of the upper right ribs, frontal projection of the lower right ribs, ob lique projection of the right ribs, frontal chest x-ray(s) for interpretation. There is no prior joleen dy for comparison. FINDINGS: There are no displaced acute right rib fractures identified. Probable old right 11th rib f racture laterally, and old left 5th rib fracture posterolaterally. Consider educating patient that e tamie if there is a radiographically occult nondisplaced rib fracture, there is no specific treatment o ther than to refrain from activity that prevents healing. No confluent consolidation, pneumothorax or pleural effusion suspected. Cardiomediastinal silhouette is normal. IMPRESSION: No displaced right rib fractures. Reviewed, dictated and finalized at location A. [employer]
[2020-05-26 17:13] VITALS: BP 193/95; PULSE 93; RESP 20; TEMP 36.8; O2SAT 96
--- NOTE | 2020-05-26 17:35 | ED.FALL ---
HPI - Fall General Chief Complaint: Fall Stated Complaint: right wrist pain/fall Time Seen by Provider: 05/26/20 17:13 Source: EMS and RN notes reviewed Mode of arrival: EMS Limitations: dementia History of Present Illness HPI Narrative: Patient rolled out of bed, landed on the floor, complaining of right lower rib pain. Patient is asymptomatic, history of dementia, MD complaint: fall Related Data Home Medications Medication Instructions Recorded Confirmed brimonidine 0.2 % eye drops 1 drop EACH EYE TID 02/04/19 03/17/20 dorzolamide 2 % eye drops 1 drop EACH EYE TID 02/04/19 03/17/20 latanoprost 0.005 % eye drops 1 drop EACH EYE HS 02/04/19 03/17/20 quetiapine 150 mg tablet,extended 200 mg PO DAILY 02/04/19 03/17/20 release 24 hr sertraline 50 mg tablet 50 mg PO DAILY 02/04/19 03/17/20 atorvastatin 80 mg PO DAILY 03/17/20 03/17/20 carvedilol 3.125 mg PO BID 03/17/20 03/17/20 cyanocobalamin (vitamin B-12) 1,000 mcg PO DAILY 03/17/20 03/17/20 [Vitamin B-12] divalproex 125 mg PO BID 03/17/20 03/17/20 donepezil 10 mg PO HS 03/17/20 03/17/20 folic acid 1 mg PO DAILY 03/17/20 03/17/20 lorazepam 0.5 mg PO DAILY PRN 03/17/20 03/17/20 losartan 100 mg PO DAILY 03/17/20 03/17/20 memantine 10 mg PO BID 03/17/20 03/17/20 potassium chloride 10 meq PO DAILY 03/17/20 03/17/20 Allergies Allergy/AdvReac Type Severity Reaction Status Date / Time codeine Allergy Unknown Unknown Verified 05/26/20 17:25 erythromycin base Allergy Unknown Unknown Verified 05/26/20 17:25 hydrocodone Allergy Unknown Diarrhea Verified 05/26/20 17:25 spironolactone Allergy Unknown Unknown Verified 05/26/20 17:25 Review of Systems Review of Systems: ROS unobtainable: Yes unobtainable due to mental status PMFSH Past Medical History Medical History Anemia of chronic disease Atherosclerotic heart disease of [place] coronary artery without angina pectoris Cerebrovascular disease Chronic low back pain Dysphagia, unspecified H/O: stroke Hyperlipidemia, unspecified Hypertensive heart disease without heart failure Primary open-angle glaucoma, bilateral, severe stage Type 2 diabetes mellitus with diabetic neuropathy, unspecified Unspecified sequelae of cerebral infarction Unspecified urinary incontinence Vascular dementia with behavioral disturbance Surgical History Surgical History S/P coronary angiogram 2006 with 3 stents Stented coronary artery Family History Family History Mother Family history of osteoarthritis Cerebrovascular accident Family history of heart disease in male family member before age 55 Patient's mother is Hypertension Family history of Alzheimer's disease Father Carcinoma of colon Patient's father is Family history of malignant neoplasm Sibling Patient's brother is in good health Other Diabetes mellitus Family history of allergic disorder Family history of cardiovascular disease Social History Social History Smoking status: Never smoker Alcohol intake: unknown Substance use: current Substance use type: sedatives Gender identity (if verbalized by the patient): Male Spiritual care concerns: No Exam Narrative: Exam Narrative: Patient laying down in bed comfortable, smiling all the time, does not look in pain or distress. General appearance: Well-developed, well-nourished Skin: Normal color Head: Normocephalic, nontraumatic Eyes: Clear conjunctiva ENT: Oropharynx normal, ears normal, nose normal Neck: Supple, nontender Chest and respiratory: Airway patent, no respiratory distress, no accessory muscle use flight redness at the right lower ribs, nontender. Heart: Regular rate/rhythm Abdomen: Soft, nontender, no organomegaly, quiet bowel sounds Vascular: Normal peripheral pulses,
[2020-05-26 18:35] VITALS: BP 182/78; PULSE 67; RESP 20; O2SAT 100
--- NOTE | 2020-05-26 19:22 | PC.NURSE ---
Called [facility] for return transport to facility...[facility]A [phone] #[phone]
[2020-05-26 21:38] VITALS: BP 175/90; PULSE 78; RESP 16; O2SAT 97
[2020-05-26 22:03] VITALS: BP 175/90; PULSE 78; RESP 16; TEMP 36.6; O2SAT 97
== END 2020-05-26 22:14 ==
PROVIDERS: Emergency Provider Emergency Medicine; PCP Family Medicine
DX: S20.211A Contusion of right front wall of thorax, initial encounter (principal); I25.10 Atherosclerotic heart disease of native coronary artery without angina pectoris; I11.9 Hypertensive heart disease without heart failure; E78.5 Hyperlipidemia, unspecified; E11.40 Type 2 diabetes mellitus with diabetic neuropathy, unspecified; F01.51 Vascular dementia, unspecified severity, with behavioral disturbance; D63.8 Anemia in other chronic diseases classified elsewhere; Z95.5 Presence of coronary angioplasty implant and graft; H40.1133 Primary open-angle glaucoma, bilateral, severe stage; I69.30 Unspecified sequelae of cerebral infarction; R32 Unspecified urinary incontinence; W06.XXXA Fall from bed, initial encounter
CPT/HCPCS: 71101; 99283

== ENCOUNTER 2020-08-26 00:59 | Observation (INO) | payer OTHER, MEDICARE, SELFPAY ==
[2020-08-26] VITALS (20 sets, daily range): BP systolic 155–184; BP diastolic 74–87; PULSE 63–97; RESP 13–20; TEMP 36.2–36.4; O2SAT 100; BMI 20.5
--- NOTE | ~2020-08-26 | XR_ITS ---
EXAMINATION: XR chest 2V DATE: 08/26/2020 01:22 INDICATION: Chest pain TECHNIQUE: frontal and lateral views of the chest were obtained. COMPARISON: Chest radiograph dated 03/16/2020 FINDINGS: Multiple small scattered calcified pulmonary nodules most numerous in the right lower lung zone consi stent with old granulomatous disease. No other airspace opacities, pulmonary edema, pleural effusion or pneumothorax. The cardiomediastinal silhouette is normal. Coronary artery stenting. Chronic appear ing mild anterior wedging of a midthoracic vertebral body. Mild thoracic spondylosis. IMPRESSION: 1. No acute cardiopulmonary disease. Reviewed, dictated and finalized at location A.
--- NOTE | 2020-08-26 01:00 | ECG_ITS ---
SINUS RHYTHM CANNOT RULE OUT SEPTAL INFARCT, AGE INDETERMINATE ST-T WAVE ABNORMALITY IN LATERAL LEADS- CONSIDER ISCHEMIA BASELINE ARTIFACT- I, II, III, AVR, AVL, AVF, V2-V6 ABNORMAL ECG Electronically Signed On 08-27-2020 7:21:53 CDT by Paco Loera D.O. COMPARED TO ECG 03/16/2020 21:32:50 NO SIGNIFICANT CHANGES MTDD
--- NOTE | 2020-08-26 01:08 | ECG_ITS ---
Measurements Intervals [place] Rate: 60 P: 25 AR: 171 QRS: -88 QRSD: 117 T: 29 QT: 444 QTc: 444 Interpretive Statements SINUS RHYTHM CANNOT RULE OUT SEPTAL INFARCT, AGE INDETERMINATE ST-T WAVE ABNORMALITY IN LATERAL LEADS- CONSIDER ISCHEMIA BASELINE ARTIFACT- I, II, III, AVR, AVL, AVF, V2-V6 ABNORMAL ECG Electronically Signed On 08-26-2020 6:29:24 CDT by Paco Loera D.O.
[2020-08-26 01:19] LABS: Basophils Percent Auto 0.3 % (0.2-1.2); Eosinophils Absolute Auto 0.2 K/mm3 (0-0.3); Eosinophils Percent Auto 2.9 % (0-4.4); Hematocrit 33.3 % (42.0-52.0); Immature Granulocyte Absolute 0.01 K/mm3 (0.00-0.031); Immature Granulocyte Percent A 0.2 % (0-0.5); Lymphocytes Absolute Auto 2.54 K/mm3 (0.9-3.2); Mean Corpuscular Hemoglobin 30.4 pg (26-34); Mean Platelet Volume 10.4 fl (7.4-10.4); Monocytes Absolute Auto 0.5 K/mm3 (0.1-0.6); Monocytes Percent Auto 7.5 % (2.6-8.5); Neutrophils Absolute Auto 3.3 K/mm3 (1.3-6.7); Neutrophils Percent Auto 50.1 % (45.5-73.1); Platelet Count Result 263 k/mm3 (150-375); Red Blood Count 3.62 M/mm3 (4.6-6.20); White Blood Count 6.5 K/mm3 (4.5-10.0)
[2020-08-26 01:27] LABS: Anion Gap 1 mmol/L (8-16); Blood Urea Nitrogen 21 mg/dL (9-20); Calcium 8.5 mg/dL (8.4-10.2); Carbon Dioxide 33 mmol/L (22-30); Chloride 103 mmol/L (98-107); Estimated CRCL calculation 54 ml/min; Estimated Glomerular Filt Rate > 60; Glucose 104 mg/dL (75-110); Potassium 3.3 mmol/L (3.4-5.0); Sodium 137 mmol/L (137-145)
[2020-08-26 01:30] LABS: Prothrombin Time 13.9 Seconds (11.1-14.7)
[2020-08-26 01:32] LABS: Partial Thromboplastin Time 33.5 SECONDS (22.3-36.8)
[2020-08-26 01:40] LABS: Troponin I 0.107 ng/mL (0.000-0.034)
--- NOTE | 2020-08-26 01:41 | ECG_ITS ---
SINUS BRADYCARDIA CANNOT RULE OUT SEPTAL INFARCT, AGE INDETERMINATE NONSPECIFIC ST ELEVATION IN ANTERIOR LEADS BASELINE ARTIFACT- I, II, III, AVR, AVL, AVF, V1-V6 ABNORMAL ECG Electronically Signed On 08-27-2020 7:22:21 CDT by Paco Loera D.O. COMPARED TO ECG 08/26/2020 01:11:40 SINUS BRADYCARDIA NOW PRESENT MYOCARDIAL INFARCT FINDING NOW PRESENT ST (T WAVE) DEVIATION NOW PRESENT MTDD
--- NOTE | 2020-08-26 01:41 | ECG_ITS ---
Measurements Intervals [place] Rate: 62 P: 82 IA: 135 QRS: 76 QRSD: 96 T: -17 QT: 423 QTc: 430 Interpretive Statements SINUS RHYTHM INCOMPLETE RIGHT BUNDLE BRANCH BLOCK LOW QRS VOLTAGE IN PRECORDIAL LEADS ST-T WAVE ABNORMALITY IN ANTEROLAT/INF LEADS- CONSIDER ISCHEMIA BASELINE ARTIFACT- I, II, III, AVR, AVL, AVF, V1-V6 ABNORMAL ECG Electronically Signed On 08-27-2020 7:22:13 CDT by Paco Loera D.O. COMPARED TO ECG 08/26/2020 01:00:24 INCOMPLETE RIGHT BUNDLE-BRANCH BLOCK NOW PRESENT MTDD
--- NOTE | 2020-08-26 01:42 | ECG_ITS ---
SINUS BRADYCARDIA LOW QRS VOLTAGE IN PRECORDIAL LEADS CANNOT RULE OUT SEPTAL INFARCT, AGE INDETERMINATE BORDERLINE ST-T WAVE ABNORMALITY- ANTEROLAT/HIGH LAT LEADS BASELINE ARTIFACT- AVR, AVL, V1-V6 ABNORMAL ECG Electronically Signed On 08-27-2020 8:08:48 CDT by Paco CHAVEZ
--- NOTE | 2020-08-26 01:42 | ECG_ITS ---
Measurements Intervals [place] Rate: 59 P: 75 HI: 180 QRS: 28 QRSD: 108 T: 55 QT: 451 QTc: 450 Interpretive Statements SINUS BRADYCARDIA CANNOT RULE OUT SEPTAL INFARCT, AGE INDETERMINATE NONSPECIFIC ST ELEVATION IN ANTERIOR LEADS BASELINE ARTIFACT- I, II, III, AVR, AVL, AVF, V1-V6 ABNORMAL ECG Electronically Signed On 08-26-2020 6:31:32 CDT by Paco Loera D.O.
[2020-08-26] MEDS: ASPIRIN 81 MG CHEWABLE TABLET 324 MG PO (01:48)
--- NOTE | 2020-08-26 01:50 | ED.CHESTPAIN ---
HPI - Chest Pain General Chief Complaint: Chest Pain Stated Complaint: chest pain Time Seen by Provider: 08/26/20 01:06 History of Present Illness HPI narrative: 80 yo male with severe dementia brought in by EMS from area custodial for chest pain He reportedly awoke from sleep this evening complaining of severe chest pain. On arrival here he tells me he has no pain. He is oriented x 1 and not able to provide any significant history. Related Data Home Medications Medication Instructions Recorded Confirmed brimonidine 0.2 % eye drops 1 drop EACH EYE TID 02/04/19 03/17/20 dorzolamide 2 % eye drops 1 drop EACH EYE TID 02/04/19 03/17/20 latanoprost 0.005 % eye drops 1 drop EACH EYE HS 02/04/19 03/17/20 quetiapine 150 mg tablet,extended 200 mg PO DAILY 02/04/19 03/17/20 release 24 hr sertraline 50 mg tablet 50 mg PO DAILY 02/04/19 03/17/20 atorvastatin 80 mg PO DAILY 03/17/20 03/17/20 carvedilol 3.125 mg PO BID 03/17/20 03/17/20 cyanocobalamin (vitamin B-12) 1,000 mcg PO DAILY 03/17/20 03/17/20 [Vitamin B-12] divalproex 125 mg PO BID 03/17/20 03/17/20 donepezil 10 mg PO HS 03/17/20 03/17/20 folic acid 1 mg PO DAILY 03/17/20 03/17/20 losartan 100 mg PO DAILY 03/17/20 03/17/20 memantine 10 mg PO BID 03/17/20 03/17/20 potassium chloride 10 meq PO DAILY 03/17/20 03/17/20 Allergies Allergy/AdvReac Type Severity Reaction Status Date / Time codeine Allergy Unknown Unknown Verified 08/26/20 00:59 erythromycin base Allergy Unknown Unknown Verified 08/26/20 00:59 hydrocodone Allergy Unknown Diarrhea Verified 08/26/20 00:59 spironolactone Allergy Unknown Unknown Verified 08/26/20 00:59 Review of Systems Review of Systems: ROS unobtainable: Yes unobtainable due to mental status PMFSH Past Medical History Medical History Anemia of chronic disease Atherosclerotic heart disease of [place] coronary artery without angina pectoris Cerebrovascular disease Chronic low back pain Dysphagia, unspecified H/O: stroke Hyperlipidemia, unspecified Hypertensive heart disease without heart failure Primary open-angle glaucoma, bilateral, severe stage Type 2 diabetes mellitus with diabetic neuropathy, unspecified Unspecified sequelae of cerebral infarction Unspecified urinary incontinence Vascular dementia with behavioral disturbance Surgical History Surgical History S/P coronary angiogram 2006 with 3 stents Stented coronary artery Family History Family History Mother Family history of osteoarthritis Cerebrovascular accident Family history of heart disease in male family member before age 55 Patient's mother is Hypertension Family history of Alzheimer's disease Father Carcinoma of colon Patient's father is Family history of malignant neoplasm Sibling Patient's brother is in good health Other Diabetes mellitus Family history of allergic disorder Family history of cardiovascular disease Social History Social History Smoking status: Never smoker Alcohol intake: unknown Substance use: current Substance use type: sedatives Gender identity (if verbalized by the patient): Male Sexual Orientation (if Verbalized by the Patient): Straight or Heterosexual Spiritual care concerns: No Exam Const: General: no acute distress, alert and confusion HENMT: Head: normal to inspection Eyes: Pupils: Equal, round and reactive pupils present Neck: Neck: normal visual inspection Chest: Chest palpation & inspection: no tenderness Resp: Effort & Inspection: normal respiratory effort Auscultation: clear to auscultation bilaterally Cardio: Rate: regular rate Rhythm: regular rhythm GI: GI Palp: Yes Soft to palpation and No Tenderness to palpation present (GI) Skin: Gene
[2020-08-26 02:24] LABS: Add Urine Microscopic? YES; Appearance Urine Clear (Clear); Bilirubin Urine Negative (Negative); Blood Urine Negative (Negative); Color Urine Yellow (Yellow); Glucose Urine UA Negative (Negative); Ketones Urine Negative (Negative); Leukocyte Esterase Ur Negative LEU/UL (Negative); Mucus Urine Rare /lpf; Nitrate Urine Negative (Negative); Protein Urine 2+ mg/dL (Negative); Specific Grav Ur 1.017 (1.001-1.035); Squamous Epithelial Cell Urine Rare /hpf (Few); WBC Urine 0-3 /hpf
[2020-08-26] MEDS: LABETALOL HCL INJ 100 MG/20 ML VIAL 20 MG IV PUSH (02:26)
[2020-08-26] MEDS: LORazepam INJ (*CRX) 2 MG/ML VIAL 1 MG IV PUSH (04:19)
[2020-08-26 05:10] LABS: Troponin I 0.169 ng/mL (0.000-0.034)
--- NOTE | 2020-08-26 06:26 | ADMGEN ---
This patient, Timothy Noble, was admitted to IMU Room 205-01 on 08/26/20 at 0435. Patient/family oriented to hospital policies and general routines including ID bracelet, bed and alarms, visiting hours, pain management, procedures, bathroom and other care routines, personal items, smoking policy, room service/diet, and visiting hours. Information on how to activate the Rapid Response Team has been discussed. Patient/Family are encouraged to report perceived risks to care and to ask questions if they do not understand what they are told or what they should do.
--- NOTE | 2020-08-26 07:02 | PC.NURSE ---
08/26/20 8380 spoke with for admission information. states that she is the POA and her in on hospice for end stage dementia. When asked if she wanted evaluated for chest pain she said yes and clarified the DNR status. When asked if she would want to pursue a cardiac cath or stress test she stated that she didn't think that would be possible. Upon further clarification that testing would be unfavorable. Asked for home med list and she directed this nurse to call [facility] for medications.
--- NOTE | 2020-08-26 07:05 | PC.NURSE ---
08/26/20 0615 Spoke with Cielo at [facility], Aware pt was admitted and she provided current med list. Home meds updated. Hospice nurse unable to clarify exact timing of losartan dosing.
--- NOTE | 2020-08-26 07:38 | PM.SD2 ---
Same Day Admit/Disch: HPI History of Present Illness Chief complaint: chest pain elevated troponin Narrative: Timothy Noble is a 80 year old male with a past medical history of coronary artery disease, hypertension, diabetes, and advanced dementia with behavioral disturbance who presented to the ER from [facility] via EMS with chest pain. According to triage note the patient had had chest pain for 30 minutes. The chest pain woke the patient from sleep. It was located to his left chest and nonradiating. The patient is only alert oriented to self and cannot verify any of this information at the time of my evaluation. The patient is evidently on hospice with [facility]. The patient was evidently brought to the ER for evaluation because the patient's did not want the patient to ?suffer? with the chest pain. The patient's initial troponin was elevated and he was subsequently admitted to the hospital as the ER physician did not have the information that the patient was on hospice. Repeat troponin demonstrate only minimal increase in level. The patient is not complaining of any pain at this time. The patient is not a candidate for aggressive intervention. Subsequently the patient will be discharged back to senior living facility back under hospice care with morphine as needed for his chest pain. [facility] Past Medical History Medical History Anemia of chronic disease Atherosclerotic heart disease of [place] coronary artery without angina pectoris Cerebrovascular disease Chronic low back pain Dysphagia, unspecified H/O: stroke Hyperlipidemia, unspecified Hypertensive heart disease without heart failure Primary open-angle glaucoma, bilateral, severe stage Type 2 diabetes mellitus with diabetic neuropathy, unspecified Unspecified sequelae of cerebral infarction Unspecified urinary incontinence Vascular dementia with behavioral disturbance Surgical History Surgical History S/P coronary angiogram 2006 with 3 stents Stented coronary artery Family History Family History Mother Family history of osteoarthritis Cerebrovascular accident Family history of heart disease in male family member before age 55 Patient's mother is Hypertension Family history of Alzheimer's disease Father Carcinoma of colon Patient's father is Family history of malignant neoplasm Sibling Patient's brother is in good health Other Diabetes mellitus Family history of allergic disorder Family history of cardiovascular disease Social History Social History (Updated 08/26/20 @ 07:46 by Vi Mancera DO) Social History: The patient is . He is residing at [facility] and is on hospice with [facility]. Code status: DNR/DNI Smoking status: Former smoker Tobacco type: cigars Alcohol intake: former Drinks per week: 7 Substance use: never Substance use type: sedatives Gender identity (if verbalized by the patient): Male Sexual Orientation (if Verbalized by the Patient): Straight or Heterosexual Spiritual care concerns: No Same Day Admit/Disch: Med Pre-admit Medications Home Medications Medication Instructions Recorded Confirmed Type brimonidine 0.2 % eye drops 1 drop EACH EYE TID 02/04/19 08/26/20 History dorzolamide 2 % eye drops 1 drop EACH EYE TID 02/04/19 08/26/20 History latanoprost 0.005 % eye drops 1 drop EACH EYE HS 02/04/19 08/26/20 History quetiapine 150 mg tablet,extended 200 mg PO DAILY 02/04/19 08/26/20 History release 24 hr divalproex 125 mg PO BID 03/17/20 08/26/20 History losartan 100 mg PO DAILY 03/17/20 08/26/20 History lorazepam 0.5 mg tablet 0.5 mg PO Q4H PRN #90 tablet 06/04/20 08/26/20 Rx morphine concentrate 100 mg/5 mL 5 mg PO Q4H PRN #30 ml 06/04/20 08/26/20 Rx (20 mg/mL) oral solution
== END 2020-08-26 11:18 | disposition hospice, home (50) ==
LOC: ANHED 02:30 → ANHIMU 03:28
PROVIDERS: Admitting Provider Internal Medicine; Emergency Provider Emergency Medicine; PCP Family Medicine; Visit Provider Internal Medicine
DX: R07.9 Chest pain, unspecified (principal); F03.90 Unspecified dementia, unspecified severity, without behavioral disturbance, psychotic disturbance, mood disturbance, and anxiety; E11.42 Type 2 diabetes mellitus with diabetic polyneuropathy; I25.10 Atherosclerotic heart disease of native coronary artery without angina pectoris; I10 Essential (primary) hypertension; R77.8 Other specified abnormalities of plasma proteins; Z86.73 Personal history of transient ischemic attack (TIA), and cerebral infarction without residual deficits; Z87.891 Personal history of nicotine dependence; Z95.5 Presence of coronary angioplasty implant and graft
CPT/HCPCS: 36415; 71046; 80048; 81001; 84484; 85025; 85610; 85730; 93005; 96374; 96375; 99285; A9270; G0378; J2060